=== PATIENT | male | born 1960 | race African-American/Black ===

== ENCOUNTER 2023-10-03 14:39 | Inpatient (IN) | payer OTHER ==
--- OUTSIDE RECORDS SUMMARY | 2023-10-03 14:42 | XMS REPORT | Continuity of Care Document ---
Author Name Unknown Address [address] [place] [address] [facility] thconnect Address [address] [place] [address] Care Team Providers Care Music Composer Name Role Phone Hollis Schneider MD Attending Clinician + [phone] HOLLIS SCHNEIDER Attending Clinician Jackson Galindo Attending Clinician [phone] Roxy Hutton Attending Clinician [phone] Doctor Unassigned, [place] Attending Clinician U navailable Payers Payer Name Policy Type Policy Number Effective Date Expirati on Date Source [facility] 53 [id number] [facility] Problems Condition Name Condition Details Condition Category Status Onset Date Resolution Date Last Treatment Date Treating Clinician Comments Source Morbid obesity with body mass index of 40.0-49.9 Morbid obesity with body mass index of 40.0-49.9 Disease Active 2017-05 00:00: 00 [facility] Hydrocele in adult Hydrocele in adult Disease Active 02-15 00:00: 00 Overview: Added automatic ally from request for surgery [id number] [facility] Reporting test result Person consulting for explanatio n of examinatio n or test findings Problem Active [facility] [id number] ED (erectile dysfunctio n) of organic origin Problem Active [facility] [id number] Erectile dysfunctio n, unspecifie d erectile dysfunctio n type Problem Active [facility] Allergies, Adverse Reactions, Alerts Allergy Name Allergy Type Status Severity Reaction(s) Onset Date Inactive Date Treating Clinician Comments Source NO KNOWN ALLERGIE S Drug Class Active [facility] Social History Social Habit Start Date Stop Date Quantity Comments Source Sex Assigned At [facility] History of Tobacco Use [facility] Alcohol intake 2019-11-14 00:00:00 2019-11-14 00:00:00 Current non-drinker of alcohol (finding) [facility] Tobacco use and exposure 2019-11-14 00:00:00 2019-11-14 00:00:00 Never used [facility] Smoking Status Start Date Stop Date Source Never Smoker [facility] Medications Ordered Medication Name Filled Medication Name Start Date Stop Date Current Medication? Ordering Clinician Indication Dosage Frequency Signature (SIG) Comments Components Source TAMSULOSIN 0.4 mg 24 hr capsule 01-27 00:00: 00 Yes [id number] TAKE 1 CAPSULE BY MOUTH EVERY DAY [facility] tadalafil (CIALIS) 10 mg tablet 11-13 18:21: 37 Yes 10mg Take 10 mg by mouth as needed for Erectile dysfunctio n. [facility] lisinopril 40 mg tablet 11-13 18:21: 37 Yes 40mg Take 40 mg by mouth daily. [facility] predniSONE 20 mg tablet 11-13 18:21: 37 Yes 20mg Take 20 mg by mouth daily. [facility] GABAPENTIN ORAL 11-13 18:21: 37 Yes 800mg Take 800 mg by mouth. [facility] losartan 100 mg tablet 11-13 00:00: 00 Yes [id number] 100mg Take 1 tablet by mouth daily. [facility] tamsulosin 0.4 mg 24 hr capsule 11-13 00:00: 00 01-27 00:00 :00 No [id number] .4mg Take 1 capsule by mouth daily. [facility] meloxicam 7.5 mg tablet 07-08 22:41: 08 07-08 00:00 :00 No 7.5mg Take 7.5 mg by mouth daily. [facility] NAPROXEN 500 mg tablet 07-08 00:00: 00 Yes [id number] TAKE 1 TABLET BY MOUTH TWICE A DAY WITH MEALS [facility] NAPROXEN 500 mg tablet 06-05 00:00: 00 07-08 00:00 :00 No [id number] TAKE 1 TABLET BY MOUTH TWICE A DAY WITH MEALS [facility] diclofenac 75 mg EC tablet 2018-05 00:00: 00 07-08 00:00 :00 No [id number] 75mg Take 1 tablet by mouth 2 (two) times daily with meals. [facility] lisinopril 40 mg tablet 2017-05 15:55: 31 Yes 40mg Take 40 mg by mouth daily. [facility] acetaminoph en-codeine (TYLENOL-CO DEINE #4) 300-60 mg tablet 2017-05 00:00: 00 Yes 1{tbl} Take 1 tablet by mouth every 4 (four) hours as needed for Pain. [facility] GABAPENTIN ORAL 2017-05 14:11: 30 Yes 800mg Take 800 mg by mouth. [facility] meloxicam 7.5 mg tablet 2017-05 14:11: 30 Yes 7.5mg Take 7.5 mg by mouth daily. [facility] tadalafil (CIALIS) 10 mg tablet 2017-05 14:11: 30 Yes 10mg Take 10 mg by mouth as needed for Erectile dysfunctio n. [facility] predniSONE 20 mg tablet 2017-05 14:11: 30 Yes 20mg Take 20 mg by mouth daily. [facility] Doxazosin Mesylate Doxazosin Mesylate Yes Isis [place] 1 tablet [facility] Carvedilol Carvedilol Yes Isis Garciae 1 tablet with food [facility] Wellbutrin SR Wellbutrin SR Yes Isis [place] 1 tablet in the morning [facility] amitriptyli ne amitriptyli ne Yes Isis Garciae one tab [facility] Flomax Flomax Yes Isis Garciae 1 capsule [facility] Pravastatin Sodium Pravastatin Sodium Yes Isis [place] 1 tablet [facility] Losartan Potassium Losartan Potassium Yes Isis Agustin[place] 1 tablet [facility] Multivitami n - Multivitami n - No 1{table t} QD Multivitam in - Pravastatin Sodium 40 MG Pravastatin Sodium 40 MG No 1{table t} QD Pravastati n Sodium 40 MG Losartan Potassium 100 MG Losartan Potassium 100 MG No 1{table t} QD Losartan Potassium 100 MG Aspirin 81 81 MG Aspirin 81 81 MG No 1{table t} QD Aspirin 81 81 MG Carvedilol 12.5 MG Carvedilol 12.5 MG No 1{table t_with_ food} BID Carvedilol 12.5 MG Vital Signs Vital Name Observation Time Observation Value Comments S ource height 2021-06-22 14:45:00 73 [in_i] Commo n [facility] weight 2021-06-22 14:45:00 310 [lb_av] Comm on [facility] temperature 2021-06-22 14:45:00 97.5 [degF] Com [facility] bmi 2021-06-22 14:45:00 40.9 kg/m2 Commo n [facility] oximetry 2021-06-22 14:45:00 97 % Commo n [facility] respiratory rate 2021-06-22 14:45:00 18 /min [facility] blood pressure systolic 2021-06-22 14:45:00 162 mm[Hg] [facility] blood pressure diastolic 2021-06-22 14:45:00 100 mm[Hg] [facility] Systolic blood pressure 2019-01-29 14:47:00 135 mm[Hg] [facility] Diastolic blood pressure 2019-01-29 14:47:00 84 mm[Hg] [facility] Heart rate 2019-01-29 14:47:00 80 /min [facility] Body temperature 2019-01-29 14:43:00 36.56 Nirmala [facility] Respiratory rate 2019-01-29 14:43:00 18 /min [facility] Body height 2019-01-29 14:43:00 188 cm [facility] Body weight 2019-01-29 14:43:00 159.575 kg [facility] BMI 2019-01-29 14:43:00 45.17 kg/m2 [facility] Procedures Procedure Date / Time Performed Performing Clinician Source NO SHOW OR MISSED APPOINTMENT POLICY ACKNOWLEDGEMENT 2019-01-29 14:34:05 Doctor Unassigned, [place] [facility] Encounters Start Date/Time End Date/Time Encounter Type Admission Type Attending Clinicians Care Facility Care Department Encounter ID Source 2023-03-09 18:57:21 Outpatient [facility] [id number] [facility] 2021-09-15 12:44:00 Outpatient [facility]LMLC ST[facility] [id number] [facility] 2021-06-22 15:31:00 Outpatient [facility] [id number] [facility] 2021-06-22 14:39:52 Outpatient [facility]MLC ST[facility] [id number] [facility] 2021-06-22 14:22:24 Outpatient [facility]ML[facility] ST[facility] [id number] [facility] 2021-06-22 11:10:35 Outpatient [facility]MLC ST[facility] [id number] [facility] 2023-09-07 10:57:58 2023-09-07 10:57:58 Outpatient SFA SFA [id number] Vlad Al Eliot 2023-07-31 09:20:18 2023-07-31 09:20:18 Outpatient SFA SFA [id number] Vlad Mccabe 2023-07-16 09:41:12 2023-07-16 09:41:12 Outpatient SFA SFA [id number] Vlad Mccabe 2023-05-09 09:28:43 2023-05-09 09:28:43 Outpatient SFA SFA [id number] Vlad Mccabe 2023-04-11 10:55:35 2023-04-11 10:55:35 Outpatient SFA SFA [id number] Vlad Mccabe 2023-02-13 09:11:43 2023-02-13 09:11:43 Outpatient SFA SFA [id number] Vlad Mccabe 2022-12-13 10:27:27 2022-12-13 10:27:27 Outpatient SFA SFA [id number] Vlad Mccabe 2022-11-14 11:30:55 2022-11-14 11:30:55 Outpatient SFA SFA [id number] Vlad Mccabe 2022-08-29 08:59:48 2022-08-29 08:59:48 Outpatient SFA SFA [id number] Vlad Mccabe 2022-08-22 09:47:17 2022-08-22 09:47:17 Outpatient SFA SFA [id number] Vlad Mccabe 2022-07-31 08:34:25 2022-07-31 08:34:25 Outpatient SFA SFA [id number] Vlad Mccabe 2021-06-22 00:00:00 2021-06-22 00:00:00 OFFICE VISIT ESTAB PT LEVEL 4 [facility] [id number] 2020-04-16 00:00:00 2020-04-16 00:00:00 Outpatient [facility] [id number] [facility] 2020-01-28 00:00:00 2020-01-28 00:00:00 [facility] [id number] [facility] 2019-12-22 10:30:00 2019-12-22 10:30:00 [facility] [id number] [facility] 2019-11-14 13:30:00 2019-11-14 13:30:00 Outpatient Marquez [facility] [id number] [facility] 2019-07-28 09:30:00 2019-07-28 09:30:00 [facility] [id number] [facility] 2019-07-08 00:00:00 2019-07-08 00:00:00 Jackson Tang [facility] [id number] [facility] 2019-01-29 09:34:46 2019-01-29 09:59:12 Office Visit Roxy Black [facility] [id number] [facility] 2019-01-29 00:00:00 2019-01-29 00:00:00 Orders Only Doctor Unassigned, [place] [facility] [id number] [facility] Results Test Description Test Time Test Comments Results Result Co mments Source PSA, [id number] 06:40:15* Test Item Value Reference Range Interpretation Comme nts PSA, TOTAL (test code = 2606) 1.66 NG/ML See_Comment NOTE: Methodolog y is Geena Ninfa Electrochemiluminescence Immunoassay traceable to WHO reference standard 96/760. [facility] has important pathology staff changes effective 07/26/2022. New pathology staff will provide uninterrupted, excellent patient care and clinical consultation. See URL: [email or web address]. UNLESS OTHERWISE INDICATED, ALL TESTING PERFORMED AT [facility] [address] [place] [address] INTERNAL AFFAIRS COMMANDER: LINDSEY HERNANDEZ M.D. CLIA NUMBER [id number] [place]. [id number] [Automated message] The system which generated this result transmitted reference range: <=4.00. The reference range was not used to interpret this result as normal/abnormal. COMPREHENSIVE METABOLIC [id number] 04:20:30* Test Item Value Reference Range Interpretation Comme nts GLUCOSE (test code = 2217) 91 MG/DL 70-99 BUN (test code = 2208) 17 MG/DL 8-23 CREATININE (test code = 2214) 1.15 MG/DL 0.80-1.40 eGFR (2020 CKD-EPI) (test code = 41462) 73 ML/MIN/1.73 >60 CALC BUN/CREAT (test code = 2235) 15 RATIO 6-28 SODIUM (test code = 2231) 138 MEQ/L 133-146 POTASSIUM (test code = 2228) 5.0 MEQ/L 3.5-5.4 CHLORIDE (test code = 2215) 107 MEQ/L 95-107 CARBON DIOXIDE (test code = 2206) 21 MEQ/L 19-31 CALCIUM (test code = 2209) 11.3 MG/DL 8.5-10.5 H PROTEIN, TOTAL (test code = 2229) 6.7 G/DL 6.1-8.3 ALBUMIN (test code = 2201) 4.2 G/DL 3.5-5.2 CALC GLOBULIN (test code = 2240) 2.5 G/DL 1.9-3.7 CALC A/G RATIO (test code = 2234) 1.7 RATIO 1.0-2.6 BILIRUBIN, TOTAL (test code = 2207) 0.2 MG/DL See_Comment [Automated me ssage] The system which generated this result transmitted reference range: <=1.2. The reference range was not used to interpret this result as normal/abnormal. ALKALINE PHOSPHATASE (test code = 2204) 120 U/L 40-123 AST (test code = 2218) 14 U/L 9-50 ALT (test code = 2219) 12 U/L 5-50 LIPID [id number] 04:20:30* Test Item Value Reference Range Interpretation Comme nts CHOLESTEROL (test code = 2210) 249 MG/DL <200 H TRIGLYCERIDES (test code = 2232) 89 MG/DL <150 HDL CHOLESTEROL (test code = 2220) 42 MG/DL >39 CALC LDL CHOL (test code = 2237) 187 MG/DL <100 H NOTE: CALCULATED LDL IS BASED ON SHERIF-ROMAN METHOD WHICHINCLUDES ADJUSTABLE TRIGLYCERIDE:VLDL CHOLESTEROL RATIO.THIS FACTOR VARIES BY MEASURED TRIGLYCERIDE AND NON-HDLCHOLESTEROL CONCENTRATIONS WITH INCREASED CALCULATED LDL SEENIN HIGHER TRIGLYCERIDE OR LOWER NON-HDL SPECIMENS. FOR MOREINFORMATION, SEE CLIENT ANNOUNCEMENT AT [email or web address] RISK RATIO LDL/HDL (test code = 2238) 4.45 RATIO <3.55 H HEMOGLOBIN [id number] 03:21:19* Test Item Value Reference Range Interpretation Comme nts HEMOGLOBIN A1c (test code = 71007) 6.0 % 4.2-5.6 H STATELESS DIABETE S ASSOCIATION GUIDELINES FOR HGB A1C: PREDIABETES/INCREASED RISK . . . . . . . 5.7-6.4% DIAGNOSIS OF DIABETES . . . . . . . . . >=6.5% WITH CONFIRMATION OR APPROPRIATE SYMPTOMS NOTE: ASSAY MAY BE AFFECTED BY HEMOGLOBINOPATHIES (SICKLE CELL ANEMIA, S-C DISEASE, OTHERS) OR ARTIFICIALLY LOWERED BY DECREASED RED CELL SURVIVAL (HEMOLYTIC ANEMIAS, BLOOD LOSS, ETC.). CONSIDER ALTERNATE TESTING OR LABORATORY CONSULTATION. CBC W/AUTO DIFF WITH [id number] 02:39:45* Test Item Value Reference Range Interpretation Comme nts WBC (test code = 1001) 8.2 K/UL 3.5-11.0 RBC (test code = 1002) 5.06 M/UL 4.50-6.10 HEMOGLOBIN (test code = 1003) 14.3 G/DL 13.5-17.0 HEMATOCRIT (test code = 1004) 44.0 % 40.0-51.0 MCV (test code = 1005) 87.0 fL 80.0-99.0 MCH (test code = 1006) 28.3 PG 25.0-33.0 MCHC (test code = 1007) 32.5 G/DL 31.0-36.0 RDW (test code = 1038) 12.6 % 11.5-15.0 NEUTROPHILS (test code = 1008) 54.7 % LYMPHOCYTES (test code = 1010) 32.6 % MONOCYTES (test code = 1011) 7.6 % EOSINOPHILS (test code = 1012) 3.7 % BASOPHILS (test code = 1013) 0.9 % IMMATURE GRANULOCYTES (test code = 1036) 0.5 % NUCLEATED RBCS (test code = 1065) 0.0 /100 WBC'S See_Comment [Automated messa ge] The system which generated this result transmitted reference range: 0.0. The reference range was not used to interpret this result as normal/abnormal. PLATELET COUNT (test code = 1015) 291 K/UL 130-400 ABSOLUTE NEUTROPHILS (test code = 1066) 4.47 K/UL 1.50-7.50 ABSOLUTE LYMPHOCYTES (test code = 1067) 2.66 K/UL 1.00-4.00 ABSOLUTE MONOCYTES (test code = 1068) 0.62 K/UL 0.20-1.00 ABSOLUTE EOSINOPHILS (test code = 1040) 0.30 K/UL 0.00-0.50 ABSOLUTE BASOPHILS (test code = 1069) 0.07 K/UL 0.00-0.20 ABS IMMATURE GRANULOCYTES (test code = 1020) 0.04 K/UL 0.00-0.10 ABS NUCLEATED RBCS (test code = 56154) 0.00 K/UL 0.00-0.11
[2023-10-03 15:49] LABS: Absolute Eosinophils 0.1 K/uL (0-0.5); Absolute Lymphocytes (CBC) 1.1 K/uL (0.7-4.9); Absolute Monocytes 0.8 K/uL (0.1-1.3); Absolute Neutrophil 5.7 K/uL (1.8-8.0); Basophils % 0.3 % (0-1.3); Eosinophils % 1.5 % (0-4.4); Hematocrit 42.3 % (39.6-49.0); Hemoglobin 13.8 g/dL (13.6-17.9); Lymphocytes % 13.9 % (15.3-44.8); MCHC 32.7 g/dL (32.0-36.0); MCV 85.5 fL (80-100); Monocytes % 10.1 % (3.3-12.3); Neutrophils % 74.2 % (41.7-73.7); Nucleated Red Blood Cells % 0.1 % (0-0); Platelets 218 thou/uL (152-406); RBC Red Blood Cell Count 4.95 M/uL (4.33-5.43); Red Cell Distribution Width 13.3 % (12.1-15.2)
[2023-10-03 15:52] LABS: PTT, Activated Partial Thromb 33.7 SECONDS (24.3-36.9); Protime INR 1.38
[2023-10-03 15:56] LABS: Albumin 3.2 g/dL (3.4-5.0); Albumin/Globulin Ratio 0.8 (1.1-1.8); Bilirubin Total 0.3 mg/dL (0.2-1.0); Protein, Total 7.2 g/dL (6.4-8.2)
--- NOTE | 2023-10-03 17:15 | RAD REPORT ---
EXAM DESCRIPTION: CTAbdomen Pelvis W Contrast - 10/03/2023 5:03 pm CLINICAL HISTORY: Abdominal pain. perineal abscess COMPARISON: No comparisons TECHNIQUE: Biphasic CT imaging of the abdomen and pelvis was performed with 100 ml non-ionic IV cont rast. All CT scans are performed using dose optimization technique as appropriate and may include automated exposure control or mA/KV adjustment according to patient size. FINDINGS: The lung bases are clear. The liver, spleen, pancreas, adrenal glands and kidneys are within normal limits. No bowel obstruction, free air, free fluid or abscess. The appendix is normal. There is a thick-wal led irregular collection in the right perineum region measuring 7.7 x 4.0 cm. This is likely an absce ss. Moderate left scrotal fluid. No suspicious bony findings. Mild lumbosacral degenerative changes. IMPRESSION: 7.7 x 4.0 cm right perineal abscess.
[2023-10-03] MEDS ORDERED: NA CHLORIDE 0.9% 100 ML ONE (17:20)
[2023-10-03] MEDS ORDERED: PIPERACIL/TAZO 3.375 GM VIAL IV ONE (17:20)
--- NOTE | 2023-10-03 17:41 | ER ---
Nurse's Notes [facility] Name: Giovani Barker Age: 63 yrs Sex: Male : 1960 Arrival Date: 10/03/2023 Time: 14:39 Bed 17 Private MD: Whit Negrete Diagnosis: Perineal abscess;Essential (primary) hypertension Presentation: 10/02 14:48 Chief complaint: Patient states: Reports pain, swelling, tenderness to perineal area iw since . States his L testes is swollen but that's normal for him. Fever on . Coronavirus screen: Client denies travel out of the [place] in the last 14 days. At this time, the client does not indicate any symptoms associated with coronavirus-19. Ebola Screen: Patient denies travel to an Ebola-affected area in the 21 days before illness onset. Initial Sepsis Screen: Does the patient meet any 2 criteria? No. Patient's initial sepsis screen is negative. Does the patient have a suspected source of infection? No. Patient's initial sepsis screen is negative. Risk Assessment: Do you want to hurt yourself or someone else? Patient reports no desire to harm self or others. Onset of symptoms was September 27, 2023. 14:48 Method Of Arrival: Ambulatory iw 14:48 Acuity: IRMA 3 iw Historical: - Allergies: 14:51 No Known Allergies; iw - PMHx: 14:51 Hyperlipidemia; Hypertension; iw - PSHx: 14:51 None; iw - Immunization history:: Adult Immunizations up to date. - Infectious Disease History:: Denies. - Social history:: Smoking status: Patient denies any tobacco usage or history of. Screenin:19 [facility] ED Fall Risk Assessment (Adult) History of falling in the last 3 months, ld1 including since admission No falls in past 3 months (0 pts). Abuse screen: Denies threats or abuse. Denies injuries from another. Nutritional screening: No deficits noted. Tuberculosis screening: No symptoms or risk factors identified. Assessment: 16:19 General: Appears in no apparent distress. comfortable, Behavior is calm, cooperative, ld1 appropriate for age. Pain: Complains of pain in pelvis Pain does not radiate. Pain currently is 7 out of 10 on a pain scale. Quality of pain is described as throbbing, Pain began suddenly, Is continuous. Neuro: Level of Consciousness is awake, alert, obeys commands, Oriented to person, place, time, situation. Cardiovascular: Capillary refill < 3 seconds Patient's skin is warm and dry. Respiratory: Airway is patent Respiratory effort is even, unlabored. GI: Abdomen is round non-distended. : No signs and/or symptoms were reported regarding the genitourinary system. EENT: No signs and/or symptoms were reported regarding the EENT system. Derm: No signs and/or symptoms reported regarding the dermatologic system. Musculoskeletal: No signs and/or symptoms reported regarding the musculoskeletal system. 17:15 Reassessment: Patient appears in no apparent distress at this time. No changes from ld1 previously documented assessment. Patient and/or family updated on plan of care and expected duration. Pain level reassessed. 18:25 Reassessment: Patient appears in no apparent distress at this time. No changes from ld1 previously documented assessment. Patient and/or family updated on plan of care and expected duration. Pain level reassessed. Patient is alert, oriented x 3, equal unlabored respirations, skin warm/dry/pink. Pt report faxed to [email or web address] OR surgeon at bedside consenting patient for surgery. 18:53 Reassessment: Patient appears in no apparent distress at this time. No changes from ld1 previously documented assessment. Patient and/or family updated on plan of care and expected duration. Pain level reassessed. Vital Signs: 14:48 BP 145 / 93; Pulse 103; Resp 18; Temp 97.5; Weight 99.79 kg; Height 6 ft. 1 in. ; Pain iw 8/10; 16:19 BP 123 / 72; Pulse 85; Resp 18; Pulse Ox 99% on R/A; ld1 16:49 Weight 148.78 kg; bc6 17:36 BP 141 / 75; Pulse 73; Resp 18; Pulse Ox 100% on R/A; ld1 18:15 BP 141 / 75; Pulse 71; Resp 18; Pulse Ox 98% on R/A; ld1 18:53 BP 146 / 72; Pulse 71; Resp 18; Pulse Ox 97% on R/A; ld1 14:48 Body Mass Index 29.03 (148.78 kg, 185.42 cm) iw 14:48 Pain Scale: Adult iw ED Course: 14:40 Patient arrived in ED. mr 14:41 Caden Whit is Private Physician. mr 14:44 Arm band placed on Patient placed in an exam room, on a stretcher. iw 14:46 Harpal Funez DO is Attending Physician. ms3 14:50 Triage completed. iw 14:54 Warm blanket given. iw 15:01 Joann Funez, RN is Primary Nurse. ld1 15:26 Blood Culture Adult (2) Sent. ph 15:26 Lactate w/ 2H reflex if indic. Sent. ph 15:26 Inserted saline lock: 20 gauge in right antecubital area, using aseptic technique. ph Blood collected. 15:41 Blood Culture Adult (2) Sent. ld1 15:41 Lactate w/ 2H reflex if indic. Sent. ld1 16:19 Patient has correct armband on for positive identification. Placed in gown. Bed in low ld1 position. Call light in reach. Side rails up X2. Pulse ox on. NIBP on. Door closed. Noise minimized. 16:19 No provider procedures requiring assistance completed. ld1 17:05 CT Abd/Pelvis - IV Contrast Only In Process Unspecified. EDMS 17:41 Elissa Tompkins MD is Hospitalizing Provider. ms3 19:03 Patient admitted, IV remains in place. ha1 19:04 Provided Education on: need for admit . ha1 Administered Medications: 17:35 Drug: Piperacillin-Tazobactam IVPB 3.375 grams IVPB once over 60 mins; (mix in NS 100 ld1 mL) Route: IVPB; Infused Over: 60 mins; Site: right antecubital; Medication: 16:19 VIS not applicable for this client. ld1 Outcome: 17:41 Decision to Hospitalize by Provider. ms3 19:03 Admitted to OR accompanied by nurse, via stretcher, with chart, ha1 19:03 Condition: stable 19:03 Discharge instructions given to patient, Instructed on the need for admit, Demonstrated understanding of instructions, 19:26 Patient left the ED. ha1 Signatures: Dispatcher [employer] EDNY JohnathanAliza, Reg Reg mr Melina Tran RN MAHENDRA Mary Juarez RN RN Harpal Funez DO DO ms3 Joann Funez, MAHENDRA MCCRAY 1 Kemi Nguyen RN RN [facility] Gillian Gipson bc6
--- NOTE | 2023-10-03 17:41 | EDPHYS ---
Physician Documentation [facility] Name: Giovani Barker Age: 63 yrs Sex: Male : 1960 Arrival Date: 10/03/2023 Time: 14:39 Bed 17 Private MD: Whit Negrete ED Physician Harpal Funez HPI: 10/02 16:26 This 63 yrs old Black Male presents to ER via Ambulatory with complaints of Testicular ms3 Swelling, Groin Pain. 16:26 63-year-old male with past medical history of hyperlipidemia, hypertension presents to [facility] the emergency department for testicular swelling that began [place]. Patient denies pain. He states he has not had nausea, vomiting, fevers, chills. He does note that today he noticed some pink blood from around his testicle.. Historical: - Allergies: 14:51 No Known Allergies; iw - PMHx: 14:51 Hyperlipidemia; Hypertension; iw - PSHx: 14:51 None; iw - Immunization history:: Adult Immunizations up to date. - Infectious Disease History:: Denies. - Social history:: Smoking status: Patient denies any tobacco usage or history of. ROS: 16:26 Constitutional: Negative for fever, and chills. Neck: Negative for injury, pain, and ms3 swelling, Cardiovascular: Negative for chest pain, and palpitations. Respiratory: Negative for shortness of breath, cough, wheezing, and pleuritic chest pain, Abdomen/GI: Negative for abdominal pain, nausea, vomiting, diarrhea, and constipation, 16:26 : Positive for Scrotum swollen, Exam: 16:26 Constitutional: This is a well developed, well nourished patient who is awake, alert, ms3 and in no acute distress. Head/Face: Normocephalic, atraumatic. Chest/axilla: Normal chest wall appearance and motion. Nontender with no deformity. Cardiovascular: Regular rate and rhythm with a normal S1 and S2. No gallops, murmurs, or rubs. Normal PMI, no JVD. No pulse deficits. Respiratory: Lungs have equal breath sounds bilaterally, clear to auscultation and percussion. No rales, rhonchi or wheezes noted. No increased work of breathing, no retractions or nasal flaring. Abdomen/GI: Soft, non-tender, with normal bowel sounds. No distension or tympany. No guarding or rebound. No evidence of tenderness throughout. 16:26 Skin: abscess, that is moderate sized, of the Right junction of scrotum and perineum, with drainage, that is bloody, that is purulent, with fluctuance, that is mild, Vital Signs: 14:48 BP 145 / 93; Pulse 103; Resp 18; Temp 97.5; Weight 99.79 kg; Height 6 ft. 1 in. ; Pain iw 8/10; 16:19 BP 123 / 72; Pulse 85; Resp 18; Pulse Ox 99% on R/A; ld1 16:49 Weight 148.78 kg; bc6 17:36 BP 141 / 75; Pulse 73; Resp 18; Pulse Ox 100% on R/A; ld1 18:15 BP 141 / 75; Pulse 71; Resp 18; Pulse Ox 98% on R/A; ld1 18:53 BP 146 / 72; Pulse 71; Resp 18; Pulse Ox 97% on R/A; ld1 14:48 Body Mass Index 29.03 (148.78 kg, 185.42 cm) iw 14:48 Pain Scale: Adult iw MDM: 15:05 Patient medically screened. ms3 16:26 Differential diagnosis: Abscess versus Jeffry's vs cellulitis. ms3 17:41 Data reviewed: vital signs, nurses notes, lab test result(s), EKG, radiologic studies, ms3 and as a result, I will admit patient. ED course: Discussed case with Dr Casillas and he will come evaluate patient.. 17:41 Consideration of Admission/Observation Patient was admitted/placed on observation. ms3 Management of patient was discussed with the following: Hospitalist: Bryan. I considered the following discharge prescriptions or medication management in the emergency department Medications were administered in the Emergency Department. See MAR. Independent interpretation of the following test(s) in the Emergency Department CT Scan: My interpretation is CT abd/pelvis images reviewed show perineal abscess. Care significantly affected by the following chronic conditions: Hypertension. Counseling: I had a detailed discussion with the patient and/or guardian regarding the historical points, exam findings, and any diagnostic results supporting the discharge/admit diagnosis, lab results, radiology results, the need for further work-up and treatment in the hospital. 10/02 15:06 Order name: Blood Culture Adult (2) ms3 10/02 15:06 Order name: CBC with Diff; Complete Time: 15:58 ms3 10/02 15:06 Order name: CMP; Complete Time: 15:58 ms3 10/02 15:06 Order name: Lactate w/ 2H reflex if indic.; Complete Time: 16:00 ms3 10/02 15:06 Order name: Protime (+inr); Complete Time: 15:58 ms3 10/02 15:06 Order name: Ptt, Activated; Complete Time: 15:58 ms3 10/02 15:06 Order name: CT Abd/Pelvis - IV Contrast Only; Complete Time: 17:33 ms3 10/02 15:06 Order name: EKG; Complete Time: 15:06 ms3 10/02 15:06 Order name: Accucheck; Complete Time: 15:27 ms3 10/02 15:06 Order name: Cardiac monitoring; Complete Time: 15:27 ms3 10/02 15:06 Order name: EKG - Nurse/Tech; Complete Time: 15:41 ms3 10/02 15:06 Order name: IV Saline Lock - Large Bore; Complete Time: 15:26 ms3 10/02 15:06 Order name: Labs collected and sent; Complete Time: 15:26 ms3 10/02 15:06 Order name: O2 Per Protocol; Complete Time: 15:11 ms3 10/02 15:06 Order name: O2 Sat Monitoring; Complete Time: 15:11 ms3 10/02 15:06 Order name: Vital Signs; Complete Time: 15:27 ms3 Administered Medications: 17:35 Drug: Piperacillin-Tazobactam IVPB 3.375 grams IVPB once over 60 mins; (mix in NS 100 ld1 mL) Route: IVPB; Infused Over: 60 mins; Site: right antecubital; Disposition Summary: 10/03/23 17:41 Hospitalization Ordered Notes: Hospitalization Status: Inpatient Admission ms3 Provider: Elissa Tompkins ms3 Location: Telemetry/MedSurg (Inpatient) ms3 Condition: Stable ms3 Problem: new ms3 Symptoms: are unchanged ms3 Bed/Room Type: Standard ms3 Room Assignment: [facility](10/03/23 18:05) bd Diagnosis - Perineal abscess ms3 - Essential (primary) hypertension ms3 Forms: - Medication Reconciliation Form ms3 - SBAR form ms3 - Leadership Thank You Letter ms3 Signatures: Dispatcher [employer] EDMS Yessica Larson Irene, MAHENDRA RN iw Harpal Funez, DO ms3 Joann Funez RN RN ld1 Corrections: (The following items were deleted from the chart) 15:06 15:06 BLOOD CULTURE*+BA.LAB.BRZ ordered. EDMS EDMS 15: 15:06 CBC+H.LAB.BRZ ordered. EDMS EDMS 15:06 15:06 COMPREHENSIVE METABOLIC PANEL+C.LAB.BRZ ordered. EDMS EDMS 15:06 15:06 LACTATE+C.LAB.BRZ ordered. EDMS EDMS 15:06 15:06 PROTIME (+INR)+COAG.LAB.BRZ ordered. EDMS EDMS 15:06 15:06 PTT, ACTIVATED+COAG.LAB.BRZ ordered. EDMS EDMS 18:05 17:41 ms3 bd
--- NOTE | 2023-10-03 18:06 | P.HP ---
Certification for Inpatient Patient admitted to: Inpatient With expected LOS: >2 Midnights Patient will require the following post-hospital care: None Practitioner: I am a practitioner with admitting privileges, knowledge of patient current condition, hospital course, and medical plan of care. Services: Services provided to patient in accordance with Admission requirements found in Title 42 Section 412.3 of the Code of Federal Regulations Patient History Date of Service: 10/03/23 Reason for admission: perirectal abscess History of Present Illness: Patient is a 73-year-old -[place] male with a past medical history of morbid obesity and hypertension. He presented to the ER complaining of worsening perineal pain. Patient has a history of right-sided hydrocele that was drained a few years ago in [place]. He has been noticing increasing pain and swelling. Associated symptoms include subjective fever. Patient arrived in the ER awake and hemodynamically stable. CT abdomen and pelvis of the region revealed a 7.[address] Guerra from general surgery was consulted by ER. During my evaluation, patient was on Zosyn. Allergies No Known Allergies Allergy (Unverified 05/25/17 17:47) Physical Examination - Physical Exam General: Alert, Cooperative, Obese HEENT: Atraumatic, Normocephalic Respiratory: Clear to auscultation bilaterally Cardiovascular: No edema Neurological: Cranial nerves 3-12 intact Rectal: Other (Rectal bleeding ) - Studies Laboratory Data (last 24 hrs) 10/03/23 10/03/23 10/03/23 15:23 15:23 15:23 WBC 7.70 Hgb 13.8 Hct 42.3 Plt Count 218 PT 15.0 H INR 1.38 APTT 33.7 Sodium 139 Potassium 4.0 BUN 12 Creatinine 1.20 Glucose 126 H Total Bilirubin 0.3 AST 16 ALT 26 Alkaline Phosphatase 104 Assessment and Plan - Plan Assessment Patient is a 63-year-old -[place] male with morbid obesity, hypertension and previous history of right-sided hydrocele. He presented to the ER with worsening perineal pain, swelling and drainage. Patient does not meet criteria for sepsis. CT abdomen and pelvis revealed a 7.7 cm perineal abscess. He is currently on Zosyn. General surgery has been consulted for further management. Perineal abscess I will continue the patient on Zosyn General surgery has been consulted Will follow intraoperative wound culture Pain control Wound care consulted Hypertension Resume home medication upon reconciliation Morbid obesity Complicates care and prognosis Patient will benefit from lifestyle modification with diet and exercise DVT prophylaxiswill hold off anticoagulation after surgery Dispo Home when medically cleared - Advance Directives Does patient have a Living Will: No Does patient have a Durable POA for Healthcare: No
[2023-10-03] MEDS ORDERED: ONDANSETRON 4 MG/2 ML VIAL IV PRN (18:51)
[2023-10-03] MEDS: Ringers Lactate 1,000 ML IV ONE (19:27)
[2023-10-03] MEDS ORDERED: propofoL 200 MG/20 ML VIAL IV ONE (20:14)
[2023-10-03] MEDS ORDERED: FENTANYL CITR 100 MCG/2 ML ONE (20:14)
[2023-10-03] MEDS ORDERED: MIDAZOLAM HCL 2 MG/2 ML INJ ONE (20:14)
[2023-10-03] MEDS: LIDOCAINE HCL/EPINEPHRINE 20 ML MDV ONE (20:40)
--- NOTE | 2023-10-03 20:50 | P.OP ---
Preoperative diagnosis: Perineal Abscess Postoperative diagnosis: Perineal Abscess Primary procedure: Exam under anesthesia Secondary procedure: incision and drainage of perineal abscess Anesthesia: GETA + Local Estimated blood loss: <5cc Specimen: Cultures Findings: ~ 6cm multiloculated abscess extending to base of scrotum Complications: None Transferred to: Recovery Room Condition: Good
[2023-10-03] MEDS ORDERED: HYDROMORPHONE HCL 1 MG/ML INJ IV PRN (21:02)
[2023-10-03 21:35] VITALS: O2SAT 100
[2023-10-03 22:31] VITALS: BMI 43.2
[2023-10-04] MEDS: PIPER TAZO 3.375 GM in NA CHLORIDE 0.9% 100 ML IV SCH (01:07)
--- NOTE | 2023-10-04 03:00 | OP ---
Date of Procedure: 10/03/2023 Surgeon: Janes Casillas MD, Preoperative Diagnosis: Perineal abscess. Postoperative Diagnosis: Perineal abscess. Procedures Performed: 1.Exam under anesthesia. 2.Incision and drainage of perineal abscess. Anesthesia: General endotracheal plus local with 0.25% Marcaine. Estimated Blood Loss: 5 cc. Specimens: Culture sent for both aerobic and anaerobic speciation. Findings: Approximately 6 cm multiloculated abscess extending to the base of the scrotum. Complications: None. Disposition: The patient was transferred to recovery room in good condition. Procedure In Detail: After informed consent was obtained, the patient was brought to the operating r oom, prepped and draped in the usual sterile fashion. After adequate anesthesia was achieved, the pa tient was placed in lithotomy position. I made an incision over an obvious draining abscess in the p erineal region just to the right of midline, where a drainage site was located. After I incised this area, I appropriately anesthetized the skin. Abscess material was immediately encountered. I cultu red this for both aerobic and anaerobic speciation. I digitized the entire tract opening into the ba se of the scrotum. I irrigated the area copiously. No hemostatic measures required at this point. Simple finger pressure was able to control bleeding. After the abscess cavity was completely opened in its entirety, I packed the wound with half-inch plain packing with Vashe packing and sterile dress ing placed over top. The patient tolerated the procedure without incident or complication, transferr ed to PACU in good condition. All counts were correct at the end of the case. PILY/BERNIE Voice ID: [id number] Report ID: [id number]
[2023-10-04] MEDS ORDERED: IBUPROFEN 600 MG TAB PO PRN (04:27)
[2023-10-04 06:35] LABS: Absolute Eosinophils 0.1 K/uL (0-0.5); Absolute Lymphocytes (CBC) 1.8 K/uL (0.7-4.9); Absolute Monocytes 0.7 K/uL (0.1-1.3); Basophils % 0.3 % (0-1.3); Eosinophils % 2.1 % (0-4.4); Lymphocytes % 26.7 % (15.3-44.8); MCH 28.1 pg (27.0-35.0); MCHC 32.6 g/dL (32.0-36.0); MPV 9.2 fL (7.6-11.3); Monocytes % 10.5 % (3.3-12.3); Neutrophils % 60.4 % (41.7-73.7); Nucleated Red Blood Cells % 0.1 % (0-0); Platelets 215 thou/uL (152-406); RBC Red Blood Cell Count 4.65 M/uL (4.33-5.43); Red Cell Distribution Width 13.5 % (12.1-15.2)
--- NOTE | 2023-10-04 06:46 | P.PN ---
Date of Service: 10/04/23 Subjective: Doing well post operatively. perineal pain improving and more tolerable no new / worsening problems no BM yet. +flatus. urinating without issues ambulating ROS: 10 point ROS as noted above, otherwise negative Physical Exam: GEN: Alert, oriented, NAD HEENT: Normal conjunctiva, sclera anicteric CV: Regular rate and rhythm, no edema Pulm: Nonlabored respirations on room air, clear bilaterally ABD: Soft, nontender, nondistended MSK: No joint tenderness Integumentary: Dressing in place c/d/i Neuro: Normal speech, normal affect vitals reviewed Problem List: Right multiloculated perineal abscess 7.7x4cm s/p I&D (10/02) Hypertension Right multiloculated perineal abscess 7.7x4cm s/p I&D (10/02) CT abdomen (10/02): 7.7 x 4.0 cm right perineal abscess Dr. Casillas, general surgeon consulted s/p I&D of multiloculated perineal abscess 7.7x4cm continue empiric zosyn (10/03-) follow wound / blood cultures afebrile, no leukocytosis continue local wound care per surgery: daily packing with 1/2" plain packing, damp to dry with Vashe pain control Hypertension confirm home meds resume home losartan VTE: Ambulatory Code: Full Dispo: Home, ~1 day anticipate early am discharge Pending surgical recs / recovery Family needs teaching on wound care instructions prior to dc
[2023-10-04 06:55] LABS: Anion Gap 6.5 mEq/L (5.0-15.0); Potassium 4.5 mEq/L (3.5-5.1)
[2023-10-04] MEDS ORDERED: HOME MED 1 EA UNK (Losartan Potassium [Cozaar] 100 MG Tablet) PO SCH (09:00)
[2023-10-04] MEDS: HYDROCODONE/APAP 5/325 MG TAB PO PRN (11:03)
[2023-10-04] MEDS: LOSARTAN POTASSIUM 50 MG TABLET PO SCH (11:03)
[2023-10-04 12:31] VITALS: BP 163/101; TEMP 96.7
--- NOTE | 2023-10-04 14:02 | EKG ---
Test Date: 2023-10-03 Test Time: 15:40:38 Grip Wrapper: REINALDO MEASUREMENT RESULTS: Intervals: Rate: 81 CA: 164 QRSD: 90 QT: 356 QTc: 413 Perry: P: 51 CA: 164 QRS: 26 T: 80 INTERPRETIVE STATEMENTS: Normal sinus rhythm Lateral infarct, age undetermined Abnormal ECG No previous ECG available for comparison Electronically Signed On 10-04-23 13:59:39 CDT by Chris Moya
--- NOTE | 2023-10-05 06:39 | P.DS ---
Admission Date: 10/03/23 Discharge Date: 10/05/23 Disposition: ROUTINE DISCHARGE Discharge Condition: GOOD Reason for Admission: perirectal abscess Consultations: General surgery - Dr. Casillas Brief History of Present Illness: 73yo M, PMH: morbid obesity and hypertension. Patient presented to the ER complaining of worsening perineal pain. Patient has a history of right-sided hydrocele that was drained a few years ago in [place]. He has been noticing increasing pain and swelling. Associated symptoms include subjective fever. Patient arrived in the ER awake and hemodynamically stable. CT abdomen and pelvis of the region revealed a 7.[address] Guerra from general surgery was consulted by ER. During my evaluation, patient was on Zosyn. Hospital Course: Problem List: Right multiloculated perineal abscess 7.7x4cm s/p I&D (10/02) Hypertension Physician discharge instructions: Patient presented with worsening perineal pain and was found to have a right sided multiloculated perineal abscess 7.7x4cm in length seen on CT. Patient was evaluated by Dr. Casillas, General surgeon, and was taken to OR or I&D of abscess on 10/02. Patient did well post operatively. Patient was feeling better, perineal pain improving, afebrile without leukocytosis, and was deemed stable for discharge. Advised to follow up with Dr. Casillas in office in ~1 week. Patient received empiric zosyn while hospitalized and is to complete 10 more days of augmentin on discharge. Continue local wound care as instructed by Dr. Casillas: daily packing with 1/2" plain packing, damp to dry with Vashe Do not submerge wound underwater. Okay to shower with running water. Medications: Augmentin x 10 days [place] as needed Follow up: PCP 3-[address] Casillas in ~1 week Physical Exam: GEN: Alert, oriented, NAD HEENT: Normal conjunctiva, sclera anicteric CV: Regular rate and rhythm, no edema Pulm: Nonlabored respirations on room air, clear bilaterally ABD: Soft, nontender, nondistended MSK: No joint tenderness Integumentary: Dressing in place c/d/i Neuro: Normal speech, normal affect Vital Signs/Physical Exam: Temp Pulse Resp BP Pulse Ox 96.7 F L 64 17 163/101 H 100 05/09/24 12:00 10/04/23 12:00 10/04/23 12:03 10/04/23 12:00 10/04/23 12:03 Laboratory Data at Discharge: WBC 6.70 thou/uL (4.3-10.9) 10/04/23 06:13 Hgb 13.0 g/dL (13.6-17.9) L 10/04/23 06:13 Hct 40.0 % (39.6-49.0) 10/04/23 06:13 Plt Count 215 thou/uL (152-406) 10/04/23 06:13 PT 15.0 SECONDS (9.5-12.5) H 10/03/23 15:23 INR 1.38 10/03/23 15:23 APTT 33.7 SECONDS (24.3-36.9) 10/03/23 15:23 Sodium 137 mEq/L (136-145) 10/04/23 06:13 Potassium 4.5 mEq/L (3.5-5.1) 10/04/23 06:13 BUN 11 mg/dL (7-18) 10/04/23 06:13 Creatinine 1.13 mg/dL (0.70-1.30) 10/04/23 06:13 Glucose 117 mg/dL (74-106) H 10/04/23 06:13 Total Bilirubin 0.3 mg/dL (0.2-1.0) 10/03/23 15:23 AST 16 U/L (15-37) 10/03/23 15:23 ALT 26 U/L (16-61) 10/03/23 15:23 Alkaline Phosphatase 104 U/L (45-117) 10/03/23 15:23 Home Medications: Ibuprofen [Motrin] 600 mg PO Q8H PRN 10/03/23 Losartan Potassium [Cozaar] 100 mg PO DAILY 10/03/23 Amox/Clavulanate [Augmentin 875-125 Tab] 1 tab PO BID 10 Days #20 tab 10/04/23 Hydrocodone 5/APAP 325 [[place] 5/325*] 1 tab PO Q8H PRN #15 tab 10/04/23 New Medications: Amox/Clavulanate [Augmentin 875-125 Tab] 1 tab PO BID 10 Days #20 tab Hydrocodone 5/APAP 325 [[place] 5/325*] 1 tab PO Q8H PRN #15 tab PRN Reason: Pain Scale 5-7 (Moderate) Physician Discharge Instructions: Physician discharge instructions: Patient presented with worsening perineal pain and was found to have a right sided multiloculated perineal abscess 7.7x4cm in length seen on CT. Patient was evaluated by Dr. Casillas, General surgeon, and was taken to OR or I&D of abscess on 10/02. Patient did well post operatively. Patient was feeling better, perineal pain improving, afebrile without leukocytosis, and was deemed stable for discharge. Advised to follow up with Dr. Casillas in office in ~1 week. Patient received empiric zosyn while hospitalized and is to complete 10 more days of augmentin on discharge. Continue local wound care as instructed by Dr. Casillas: daily packing with 1/2" plain packing, damp to dry with Vashe Do not submerge wound underwater. Okay to shower with running water. Medications: Augmentin x 10 days [place] as needed Follow up: PCP 3-[address] Casillas in ~1 week Diet: ADA Activity: Ad chantelle Followup: Janes Casillas MD [ACTIVE - CAN ADMIT] - 1 Week ELISABETH FLORES [Primary Care Provider] - (3-5 days) Time spent managing pt's care (in minutes): 45
== END 2023-10-04 13:57 | disposition home or self-care (01) | DRG 603 ==
LOC: ER 14:39 → ERHOLD 18:01 → 2ND 18:15
PROVIDERS: ADMIT Internal Medicine; ATTEND Hospitalist
PROC: 0W9M0ZZ Drainage of Male Perineum, Open Approach (ICD-10-PCS; principal; 2023-10-03 19:00)
DX: L02.215 Cutaneous abscess of perineum (principal); Z68.41 Body mass index [BMI] 40.0-44.9, adult; E66.01 Morbid (severe) obesity due to excess calories; I10 Essential (primary) hypertension; E78.5 Hyperlipidemia, unspecified
CPT/HCPCS: 36415; 74177; 80048; 80053; 83605; 85025; 85610; 85730; 87040; 87070; 87075; 87205; 93005; 96374; 99285; J2250; J2543; J2704; J3010; J7120; Q9967